=== PATIENT | male | born 1950 | race Caucasian/White ===

== ENCOUNTER → 2016-11-07 | Outpatient (CLI) | payer BC ==
[~2016-11-07] MED LIST: FOOD ENZYME; LEVEMIR FL100 UNIT/1 SC
== END | disposition home or self-care (01) ==
LOC: CDC 12:40
DX: R00.1 Bradycardia, unspecified (principal); I49.3 Ventricular premature depolarization; R94.31 Abnormal electrocardiogram [ECG] [EKG]
CPT/HCPCS: 93000

== ENCOUNTER 2017-04-22 23:12 | Emergency (ER) | payer BC ==
[~2017-04-22] VITALS: Ht 177.8 cm; Wt 84.6 kg
[2017-04-22 23:58] LABS: HEMATOCRIT 39.9 % (38.0-50.0); MCH 29.9 PG (29.0-34.0); MCHC 33.6 G/DL (30.0-36.0); MCV 89.1 FL (86-99); MEAN PLAT.VOLUME 11.7 uM^3 (9.0-12.4); PLATELET COUNT 152 K/uL (156-360); RBC DIS.WIDTH-CV 12.7 % (11.8-14.6); RBC DIS.WIDTH-SD 41.6 % (39-53); RED BLOOD COUNT 4.48 M/uL (4.00-5.50); WHITE BLOOD COUNT 9.6 K/uL (4.1-10.2)
[2017-04-23 00:13] LABS: CHLORIDE 108 mEq/L (99-109); SODIUM 144 mEq/L (136-147)
[2017-04-23 00:15] LABS: GLUCOSE 106 mg/dL (70-99)
[2017-04-23 00:17] LABS: ANION GAP 10 MEQ/L (2-14); TOTAL BILIRUBIN 0.8 mg/dL (0.0-1.0)
[2017-04-23 00:19] LABS: ALKALINE PHOSPHATASE 80 IU/L (3-129); GFR ESTIMATE (CALCULATED) > 59 mL/min/
[2017-04-23 00:20] LABS: UREA NITROGEN (BUN) 9 mg/dL (9-23)
[2017-04-23 02:14] LABS: ADD MIUA? NO; BILIRUBIN NEGATIVE; BLOOD NEGATIVE; COLOR STRAW ((YELLOW)); GLUCOSE (STRIP) NEGATIVE; KETONES 5; LEUKOCYTES NEGATIVE; NITRITE NEGATIVE; PROTEIN (STRIP) NEGATIVE; SPECIFIC GRAVITY 1.009 (1.000-1.030); UCUL ADDED? NO; UROBILINOGEN 0.2 MG/DL (0.2-1.0)
[2017-04-23] MEDS ORDERED: VALIUM5 MG PO (04:06)
[2017-04-23 04:37] VITALS: BP 148/72
== END 2017-04-23 04:37 | disposition home or self-care (01) ==
LOC: EME 23:12
DX: S39.011A Strain of muscle, fascia and tendon of abdomen, initial encounter (principal); M79.605 Pain in left leg; M79.642 Pain in left hand; W01.0XXA Fall on same level from slipping, tripping and stumbling without subsequent striking against object, initial encounter; G89.29 Other chronic pain; N20.0 Calculus of kidney; N40.0 Benign prostatic hyperplasia without lower urinary tract symptoms; R91.1 Solitary pulmonary nodule; E11.9 Type 2 diabetes mellitus without complications; Z79.4 Long term (current) use of insulin; Z87.442 Personal history of urinary calculi
CPT/HCPCS: 74176; 80053; 81003; 85027; 99281; 99285; J2270; J3010

== ENCOUNTER 2018-02-28 14:29 | Emergency (ER) | payer BC ==
[~2018-02-28] VITALS: Ht 175.3 cm; Wt 82.2 kg
[~2018-02-28 14:29] MED LIST changes: +VALIUM5 MG PO
[2018-02-28 16:19] VITALS: BP 165/72
== END 2018-02-28 16:19 | disposition home or self-care (01) ==
LOC: EME 14:29
DX: S91.112A Laceration without foreign body of left great toe without damage to nail, initial encounter (principal); W25.XXXA Contact with sharp glass, initial encounter; W22.8XXA Striking against or struck by other objects, initial encounter; M19.072 Primary osteoarthritis, left ankle and foot; Z79.82 Long term (current) use of aspirin; E11.9 Type 2 diabetes mellitus without complications; Z79.4 Long term (current) use of insulin; Z88.0 Allergy status to penicillin
CPT/HCPCS: 73630; 99281; 99284